=== PATIENT | male | born 2000 | race Caucasian/White ===

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

== ENCOUNTER 2024-01-25 18:34 | Observation (INO) | payer OTHER ==
[~2024-01-25] VITALS: Ht 172.7 cm; Wt 87.0 kg
[2024-01-25 19:51] LABS: BASOPHILS ABSOLUTE AUTO 0.04 K/mm3 (0.00-0.23); BASOPHILS PERCENT AUTO 1 % (0-2); EOSINOPHILS ABSOLUTE AUTO 0.05 K/mm3 (0.00-0.68); EOSINOPHILS PERCENT AUTO 1 % (0-6); Hematocrit 47.5 % (37.0-53.0); Hemoglobin 16.1 g/dL (13.5-17.5); IMMATURE GRAN ABSOLUTE AUTO 0.01 K/mm3 (0.00-0.10); IMMATURE GRAN PERCENT AUTO 0 % (0-1); LYMPHOCYTES PERCENT AUTO 19 % (21-46); MONOCYTES ABSOLUTE AUTO 0.54 K/mm3 (0.16-1.47); MONOCYTES PERCENT AUTO 7 % (4-13); Mean Corpuscular HGB Conc 33.9 g/dL (31.5-36.5); Mean Corpuscular Volume 94 fL (80-100); Mean Platelet Volume 11.4 fL (9.1-12.4); NEUTROPHILS ABSOLUTE AUTO 5.23 K/mm3 (1.96-9.15); NEUTROPHILS PERCENT AUTO 72 % (41-73); Platelet Count 199 K/mm3 (150-400); RDW Coefficient Variation 11.9 % (11.7-14.2); RDW Standard Deviation 41.4 fL (35.1-46.3); Red Blood Cell Count 5.03 M/mm3 (4.30-5.90); White Blood Cell Count 7.27 K/mm3 (4.00-11.30)
[2024-01-25 20:17] LABS: Ethanol (Alcohol), Blood, Med <3 mg/dL; Salicylate <1.7 mg/dL (2.8-20.0)
[2024-01-25 20:21] LABS: Thyroid Stimulating Hormone 0.709 uIU/mL (0.360-4.800); Thyroxine (T4) 7.9 ug/dL (4.5-12.1)
[2024-01-25 20:24] LABS: Acetaminophen, Random <2.0 ug/mL (10.0-30.0); Alanine Aminotransfer (ALT/SGP 23 U/L (12-78); Albumin/Globulin Ratio 1.2 (0.8-1.8); Alk Phos 84 U/L (50-136); Anion Gap 8 mmol/L (3-11); Aspartate Aminotrans (AST/SGOT 18 U/L (12-37); Bilirubin, Total 0.9 mg/dL (0.1-1.0); Blood Urea Nitrogen 10 mg/dL (8-24); Bun/Creatinine Ratio 12.1 (12.0-20.0); CO2, Blood 29 mmol/L (21-32); Calcium, Blood 9.2 mg/dL (8.5-10.1); Chloride, Blood 106 mmol/L (98-108); Creatinine, Blood 0.83 mg/dL (0.60-1.20); Globulin, Blood 3.3 g/dL (2.2-4.0); Glomerular Filtration Rate 127 (60-); Glucose, Blood 103 mg/dL (70-99); Potassium, Blood 3.7 mmol/L (3.5-5.5); Sodium, Blood 139 mmol/L (136-145); Total Protein, Blood 7.3 g/dL (6.4-8.2)
[2024-01-25 21:03] LABS: Source, Urine Clean Catch
[2024-01-25 21:21] LABS: Appearance, Urine Clear (Clear); Bilirubin, Urine Neg (Neg); Blood, Urine Neg (Neg); Color, Urine Yellow (P-Yellow); Glucose Qualitative, Urine Neg (Neg); Ketones, Urine Neg (Neg); Leukocyte Esterase, Urine Neg (Neg); Nitrite, Urine Neg (Neg); Protein, Urine Neg (Neg); Urobilinogen, Urine NORM (Normal)
[2024-01-25 21:36] LABS: U Amphetamine Screen Not Detected; U Barbituate Screen Not Detected; U Benzodiazapine Screen Not Detected; U Buprenorphine Screen Not Detected; U Cannabinoids Screen DETECTED; U Cocaine Screen Not Detected; U Methadone Screen Not Detected; U Methamphetamine Screen Not Detected; U Opiates Screen Not Detected; U Oxycodone Screen Not Detected; U Phencyclidine Screen Not Detected
[2024-01-25] MEDS ORDERED: Haloperidol 5 MG Tab PO PRN (22:45)
[2024-01-25] MEDS ORDERED: Haloperidol Lactate Inj. 5 MG/ML Injection IM PRN ×2 (22:45→22:50)
[2024-01-25] MEDS ORDERED: QUEtiapine Fumarate 25 MG Tab PO PRN (22:45)
[2024-01-25] MEDS ORDERED: OLANZapine ODT 10 MG Tab MM PRN ×2 (22:45)
[2024-01-25] MEDS ORDERED: OLANZapine 10 MG Vial IM PRN (22:50)
[2024-01-25] MEDS ORDERED: LORazepam 2 MG/ML 1ML Injection IM PRN ×2 (22:50)
[2024-01-25] MEDS ORDERED: DiphenhydrAMINE HCl 50 MG/ML 1ML Vial IM PRN ×3 (22:50→22:55)
[2024-01-25] MEDS ORDERED: Zolpidem Tartrate 5 MG Tab PO PRN (22:50)
[2024-01-25] MEDS ORDERED: Aluminum Hydroxide 320MG/5ML 473 ML PO PRN (22:55)
[2024-01-25] MEDS ORDERED: LORazepam 2 MG Tab PO PRN (22:55)
[2024-01-25] MEDS ORDERED: Acetaminophen 325 MG TABLET PO PRN (22:55)
[2024-01-25] MEDS ORDERED: RisperiDONE 1 MG Tab PO PRN (22:55)
[2024-01-25] MEDS ORDERED: Ibuprofen 600 MG Tab PO PRN (22:55)
[2024-01-25] MEDS ORDERED: LORazepam 1 MG Tab PO PRN ×2 (23:05→23:10)
[2024-01-26 00:15] VITALS: BP 134/87
--- NOTE | 2024-01-26 04:54 | NUR ---
Patient is an A&OX3, and cooperative with care. He admitted he was frightened about his current situation and his inability to control the "voices on the phone". Grandmother Vidya took all of his personal items home with exception of one pair underwear. He woke around 0100 anxious as he couldn't stay asleep and asked for something to help. 2mg PO Ativan given with good result. Physical assessment was benign.
== END 2024-01-25 23:25 | disposition other institution (70) ==
LOC: ER 18:34 → BHU 18:35
PROVIDERS: Emergency Medicine; ADMIT Student in an Organized Health Care Education/Training Program
DX: F31.81 Bipolar II disorder (principal); F17.210 Nicotine dependence, cigarettes, uncomplicated; F17.220 Nicotine dependence, chewing tobacco, uncomplicated; F17.290 Nicotine dependence, other tobacco product, uncomplicated; Z81.8 Family history of other mental and behavioral disorders
CPT/HCPCS: 70450; 80053; 81003; 84436; 84443; 85025; 99285-25; A9270; G0378; G0480

== ENCOUNTER 2024-01-25 23:00 | Inpatient (IN) | payer OTHER ==
[2024-01-25 23:59] VITALS: BP 107/80
[2024-01-26] MEDS ORDERED: LORazepam 2 MG/ML 1ML Injection IM PRN (10:15)
[2024-01-26] MEDS ORDERED: Acetaminophen 325 MG TABLET PO PRN (10:15)
[2024-01-26] MEDS ORDERED: Zolpidem Tartrate 5 MG Tab PO PRN (10:15)
[2024-01-26] MEDS ORDERED: DiphenhydrAMINE HCl 50 MG Cap PO PRN ×2 (10:15→10:20)
[2024-01-26] MEDS ORDERED: DiphenhydrAMINE HCl 50 MG/ML 1ML Vial IM PRN (10:15)
[2024-01-26] MEDS ORDERED: LORazepam 2 MG Tab PO PRN ×2 (10:20→10:25)
[2024-01-26] MEDS ORDERED: RisperiDONE 1 MG Tab PO PRN (10:20)
[2024-01-26] MEDS ORDERED: QUEtiapine Fumarate 25 MG Tab PO PRN (10:20)
[2024-01-26] MEDS ORDERED: Haloperidol 5 MG Tab PO PRN ×2 (10:20→10:25)
[2024-01-26] MEDS ORDERED: LORazepam 1 MG Tab PO PRN ×2 (10:20→10:25)
[2024-01-26] MEDS ORDERED: Aluminum Hydroxide 320MG/5ML 473 ML PO PRN (10:20)
[2024-01-26] MEDS ORDERED: OLANZapine ODT 10 MG Tab MM PRN (10:25)
[2024-01-26] MEDS ORDERED: Haloperidol Lactate Inj. 5 MG/ML Injection IM PRN (10:25)
[2024-01-26] MEDS ORDERED: OLANZapine 10 MG Vial IM PRN (10:25)
[2024-01-26] MEDS ORDERED: Ibuprofen 600 MG Tab PO PRN (10:25)
[2024-01-26] MEDS ORDERED: OLANZapine ODT 5 MG Tab MM PRN (10:25)
--- NOTE | 2024-01-26 11:42 | NUR ---
PT ATTENDED SECOND GROUP AND THEN REQUESTED SHOWER, PT IS IN THE SHOWER CURRENTLY, WANTED TO DO THIS BEFORE LUNCH.
--- NOTE | 2024-01-26 15:04 | NUR ---
MARTIN attempted to contact Vidya Morrison at approximately 2:30pm, however, it went to voicemail. MARTIN will attempt to reach Vidya Morrison at another time.
--- NOTE | 2024-01-26 15:12 | NUR ---
SW provided pt with tools to assist pt in developing healthy social relationships and positive self-talk due to pt expressing that he would like to learn how to understand the difference between negative and positive relationships and increase healthy self-talk.
[2024-01-26 20:18] VITALS: BP 107/80
[2024-01-26] MEDS ORDERED: QUEtiapine Fumarate 300 MG Tab PO SCH (21:00)
[2024-01-26 23:47] VITALS: BP 134/87
--- NOTE | 2024-01-27 04:28 | NUR ---
patient in room reading quietly most of evening. Appreciative of Seroquel at HS. Slept quietly through night waking only once or twice for brief periods. Sleep time likely 6-7 hours
--- NOTE | 2024-01-27 07:54 | NUR ---
AG [facility] [phone]
[2024-01-27] MEDS ORDERED: Nicotine 21 MG PATCH TOP SCH (09:00)
--- NOTE | 2024-01-27 15:10 | NUR ---
PT EXPRESSED INTEREST IN OUTPATIENT COUNSELING SERVICES AND SOME ISSUES HE HAS BEEN DEALING WITH. ENCOURAGED THIS AND WILL SPEAK TO SS ABOUT SERVICES. PT GIVEN PAPER AND SAFETY PEN HE IS WANTING TO JOURNAL IN HIS ROOM.
--- NOTE | 2024-01-27 17:42 | NUR ---
PT ASKED IF HE COULD TALK TO ME: WE TALKED, HE WAS TEARFUL: I ASKED IF HE WOULD LIKE A PEN/PAPER TO JOURNAL: RN SAID HE COULD:
[2024-01-27 21:03] VITALS: BP 137/88
--- NOTE | 2024-01-27 21:11 | NUR ---
PT C/O WARMTH, SWELLING AND SLIGHT SHARP PAIN OF 2/10 TO L LOWER EYELID. PROVIDED WARM, MOIST WASHCLOTH FOR COMPRESS. WILL CONTINUE TO MONITOR.
--- NOTE | 2024-01-28 05:21 | NUR ---
Patient continues to sleep well. No noted issues or behaviors.
--- NOTE | 2024-01-28 08:20 | NUR ---
PT SLEPT "WELL," STATES HE IS "OK," HE'S AGAIN TALKING ABOUT CONCERNS ABOUT SOME PORNOGRAPHIC MATERIAL HE VIEWED BEFORE ADMISSION, REASSURED PT, PT IS STILL OPEN TO RECEIVING OUTPATIENT THERAPY, BUT ALSO WOULD LIKE TO SPEAK TO THE PROVIDER. PT HAS SOME SWELLING OF LEFT LOWER EYELID THIS MORNING, PT WAS TEARFUL AND RUBBING EYES YESTERDAY, HE IS GIVEN WARM COMPRESS AND TEA BAG. PT ATE FULL BREAKFAST. PT WITH BLUNTED AFFECT THIS MORNING AND AVOIDING EYE CONTACT.
[2024-01-28 08:27] VITALS: BP 137/85
--- NOTE | 2024-01-28 10:26 | NUR ---
PROVIDER TO BEDSIDE FOR EVALUATION AT THIS TIME.
[2024-01-28] MEDS ORDERED: LamoTRIgine 25 MG Tab PO SCH (12:00)
--- NOTE | 2024-01-28 13:54 | NUR ---
PROVIDER DC'D SEROQUEL AND WILL BE STARTNG LAMICTAL, NOT AVAILABLE IN THE [facility] AT THIS TIME, PHARMACY CONTACTED AND NOTIFIED, THEY WILL LOAD BY 1500 PER PC. PT LAID DOWN AND APPEARS TO BE SLEEPING AT THIS TIME, RESPIRATIONS EVEN AND UNLABORED.
--- NOTE | 2024-01-28 15:48 | NUR ---
MEDICATIONS ARRIVED FROM PHARMACY, PT WOKEN UP, DISCUSSED NEW MEDICATIONS AND POSSIBLE SIDE EFFECTS, PT STATES HE WILL LET STAFF KNOW OF ANY RASHES IMMEDIATELY, WELL ANY OTHER SIDE EFFECTS. DISCUSSED IMPORTANCE OF NOT ABRUPTLY STOPPING MEDICATION ONCE STARTED, PT VERBALLY REPORTS UNDERSTANDING. PT NOW IN MEDIA ROOM WATCHING THE HISTORY CHANNEL WITH STAFF AND ANOTHER PATIENT.
--- NOTE | 2024-01-28 21:02 | NUR ---
Patient refuse HS quetiapine. Bank Courier explained the importance of med compliance, as the the charger tester, however pt continued to refuse med. Pt also removed his nicotine patch at about 2100.
[2024-01-28 21:38] VITALS: BP 148/98
--- NOTE | 2024-01-28 21:40 | NUR ---
At about 0, [facility] reported to this teletypewriter installer that patient was "spiraling." Sales Property Manager went to patient's room and talked about his racing thoughts and explained that the med he refused earlier (quetiapine) would help with the racing thoughts. Patient continues to refuse quetiapine and said that he knew what he needed to do. Sales Property Manager explained that if patient changes his mind about the quetiapine that we would administer it late if desired. Will continue to monitor.
--- NOTE | 2024-01-29 01:13 | NUR ---
Patient was up to the nurse station at about 0100 requesting to take the quetiapine that he initially refused. RN pulled the med and administered it. Patient also mentioned that he has not had a BM in about 2 days. RN told the patient that he would document the statement and that the patient should discuss this issue with the provider.
[2024-01-29 09:52] VITALS: BP 111/72
[2024-01-29 19:40] VITALS: BP 120/90
--- NOTE | 2024-01-30 03:01 | NUR ---
Pt calm, cooperative, actively learning taking notes on medications, journaling. Pt has sty on left eye applying warm compresses. Pt medication compliant, medications administered as ordered, medications well tolerated. Pt engaged in treatment and recovery plan of care.
[2024-01-30 08:29] VITALS: BP 126/77
--- NOTE | 2024-01-30 08:35 | NUR ---
MORNING ASSESSMENT: PT DENIED SI, HI, AVH AND PAIN. HE REPORTED MILD ANXIETY OF 3/10w. PHYSICAL ASSESSMENT WAS WNL. PT REPORTED "i FEEL GOOD...I'M READY TO DO THIS." HE WAS ENCOURAGED TO ATTEND GROUPS TODAY AND APPEARED RECEPTIVE. HE IS PRESENTLY IN THE SHOWER.
[2024-01-30] MEDS ORDERED: Polyethylene Glycol 3350 17 gm PO PRN (15:15)
--- NOTE | 2024-01-30 15:24 | NUR ---
At 1457pm MARTIN contacted grandmother (i.e. Vidya) of pt by number [phone] in order to advise of discharge time and date (i.e. 01/31/2024 1515pm). Vidya advised she will be able to tile picker pt on time discussed.
--- NOTE | 2024-01-30 15:27 | NUR ---
Approximately 1450pm SW met with pt to review helpful resources to use after discharge (i.e. individual therapy, anger management and psychiatric services). Pt advised that he would like to utilize the services provided. Pt stated that [employer] provided him with resources for employment. Pt expressed to SW that he does not have any current concerns and plans to utilize the resources provided by team. 01/27/2024 MARTIN and [facility] worked together to ensure that pt had therapuetic resources within network of his insurance.
--- NOTE | 2024-01-30 17:48 | NUR ---
Came into work this morning at 0645, PT told me he pooped yesterday/ last night, and felt very bloated in AM. I asked PT how he was feeling and if he had pooped yet today around 1430 and he said no. He said he drank some apple juice, water, and would like a stool softner. I told him I would let the RN know.
--- NOTE | 2024-01-30 19:02 | NUR ---
PT REPORTED SMALL AMOUNT OF BM SINCE DRINKING THE MIRALAX.
[2024-01-30 20:22] VITALS: BP 140/80
--- NOTE | 2024-01-31 05:10 | NUR ---
Henri had a good night last night. spent most of the evening reading and journaling. He is alert and oriented X3, and states he is having no further auditory hallucinations, feels well rested and is looking forward to likely discharge in the AM.
[2024-01-31 10:09] VITALS: BP 129/80
[2024-01-31] MEDS ORDERED: LAMO25 PO (11:09)
[2024-01-31] MEDS ORDERED: NICO21TP TOP (11:11)
[2024-01-31] MEDS ORDERED: QUET300 PO (11:11)
== END 2024-01-31 12:30 | disposition home or self-care (01) | DRG 885 ==
LOC: BHU 23:00
PROVIDERS: ADMIT Student in an Organized Health Care Education/Training Program
DX: F31.81 Bipolar II disorder (principal); R45.851 Suicidal ideations; F17.210 Nicotine dependence, cigarettes, uncomplicated; F29 Unspecified psychosis not due to a substance or known physiological condition; F12.10 Cannabis abuse, uncomplicated; Z91.018 Allergy to other foods
CPT/HCPCS: A9270

== ENCOUNTER → 2024-02-13 | Outpatient (CLI) | payer OTHER ==
[~2024-02-13] MED LIST changes: +LAMO25 PO; +NICO21TP TOP; +QUET300 PO
== END | disposition home or self-care (01) ==
LOC: LAB 08:15 → LAB SHORT 08:15
DX: R19.8 Other specified symptoms and signs involving the digestive system and abdomen (principal)
CPT/HCPCS: 87070; 87205

== ENCOUNTER → 2024-07-04 | Outpatient (CLI) | payer OTHER ==
[2024-07-04 23:27] LABS: Adenovirus F 40/41 Not Detected (NOT DETECT); Campylobacter Sp Not Detected (NOT DETECT); Cryptosporidium Not Detected (NOT DETECT); Cyclospora Cayetanensis Not Detected (NOT DETECT); E. Coli O157 Not Detected (NOT DETECT); Entamoeba Histolytica Not Detected (NOT DETECT); Enteroaggregative E. coli-EAEC Not Detected (NOT DETECT); Enteropathogenic E. coli-EPEC Not Detected (NOT DETECT); Enterotoxigenic E. coli-ETEC Not Detected (NOT DETECT); Giardia Lamblia Not Detected (NOT DETECT); Plesiomonas Shigelloides Not Detected (NOT DETECT); Salmonella Sp Not Detected (NOT DETECT); Shiga Toxin-prod E. coli-STEC Not Detected (NOT DETECT); Shigella/Enteroin E. coli-EIEC Not Detected (NOT DETECT); Vibrio Cholerae Not Detected (NOT DETECT); Vibrio Sp Not Detected (NOT DETECT); Yersinia Enterocolitica Not Detected (NOT DETECT)
[2024-07-04 23:28] LABS: Astrovirus Not Detected (NOT DETECT); Norovirus GI/GII Not Detected (NOT DETECT); Rotavirus A Not Detected (NOT DETECT); Sapovirus Not Detected (NOT DETECT)
== END ==
LOC: LAB 13:30 → LAB SHORT 13:30
PROVIDERS: Nurse Practitioner Family
DX: R19.7 Diarrhea, unspecified (principal)
CPT/HCPCS: 87507

== ENCOUNTER 2025-07-10 14:57 | Observation (INO) | payer OTHER ==
[~2025-07-10] VITALS: Ht 172.7 cm; Wt 81.7 kg
[2025-07-10 17:27] LABS: BASOPHILS ABSOLUTE AUTO 0.02 K/mm3 (0.00-0.23); BASOPHILS PERCENT AUTO 0 % (0-2); EOSINOPHILS ABSOLUTE AUTO 0.05 K/mm3 (0.00-0.68); EOSINOPHILS PERCENT AUTO 1 % (0-6); Hematocrit 48.2 % (37.0-53.0); Hemoglobin 16.2 g/dL (13.5-17.5); IMMATURE GRAN ABSOLUTE AUTO 0.02 K/mm3 (0.00-0.10); IMMATURE GRAN PERCENT AUTO 0 % (0-1); LYMPHOCYTES ABSOLUTE AUTO 1.96 K/mm3 (0.84-5.20); LYMPHOCYTES PERCENT AUTO 21 % (21-46); MONOCYTES ABSOLUTE AUTO 0.72 K/mm3 (0.16-1.47); MONOCYTES PERCENT AUTO 8 % (4-13); Mean Corpuscular HGB Conc 33.6 g/dL (31.5-36.5); Mean Corpuscular Volume 94 fL (80-100); NEUTROPHILS ABSOLUTE AUTO 6.47 K/mm3 (1.96-9.15); NEUTROPHILS PERCENT AUTO 70 % (41-73); NRBC ABSOLUTE 0.00 K/mm3 (0.00-0.02); NRBC Auto 0.0 /100 WBC (0.0-0.2); Platelet Count 160 K/mm3 (150-400); RDW Coefficient Variation 12.0 % (11.7-14.2); RDW Standard Deviation 41.8 fL (35.1-46.3)
[2025-07-10 18:31] LABS: Ethanol (Alcohol), Blood, Med <3 mg/dL; Salicylate 2.9 mg/dL (2.8-20.0)
[2025-07-10 18:34] LABS: Source, Urine Clean Catch
[2025-07-10 18:37] LABS: Bilirubin, Urine Neg (Neg); Color, Urine Yellow (P-Yellow); Glucose Qualitative, Urine Neg (Neg); Ketones, Urine 1+ (Neg); Leukocyte Esterase, Urine Neg (Neg); Protein, Urine Neg (Neg); Specific Gravity, Urine 1.020 (1.003-1.022); Urobilinogen, Urine 1+ (Normal)
[2025-07-10 18:43] LABS: Alanine Aminotransfer (ALT/SGP 20 U/L (12-78); Albumin, Blood 4.1 g/dL (3.4-5.0); Albumin/Globulin Ratio 1.4 (0.8-1.8); Anion Gap 7 mmol/L (3-11); Aspartate Aminotrans (AST/SGOT 15 U/L (12-37); Bilirubin, Total 0.5 mg/dL (0.1-1.0); Blood Urea Nitrogen 7 mg/dL (8-24); CO2, Blood 27 mmol/L (21-32); Calcium, Blood 9.0 mg/dL (8.5-10.1); Chloride, Blood 109 mmol/L (98-108); Creatinine, Blood 0.70 mg/dL (0.60-1.20); Globulin, Blood 3.0 g/dL (2.2-4.0); Glucose, Blood 94 mg/dL (70-99); Potassium, Blood 3.5 mmol/L (3.5-5.5); Sodium, Blood 139 mmol/L (136-145); Total Protein, Blood 7.1 g/dL (6.4-8.2)
[2025-07-10 18:44] LABS: Acetaminophen, Random <2.0 ug/mL (10.0-30.0)
[2025-07-10 18:49] LABS: U Amphetamine Screen Not Detected; U Barbiturate Screen Not Detected; U Benzodiazapine Screen Not Detected; U Buprenorphine Screen Not Detected; U Cannabinoids Screen DETECTED; U Cocaine Screen Not Detected; U Methadone Screen Not Detected; U Methamphetamine Screen Not Detected; U Opiates Screen Not Detected; U Oxycodone Screen Not Detected; U Phencyclidine Screen Not Detected
[2025-07-10 19:19] VITALS: BP 133/78
== END 2025-07-11 11:45 | disposition home or self-care (01) ==
LOC: ER 14:57 → EOR 14:58
PROVIDERS: Student in an Organized Health Care Education/Training Program; ADMIT Emergency Medicine
DX: F43.25 Adjustment disorder with mixed disturbance of emotions and conduct (principal); R45.851 Suicidal ideations; F31.81 Bipolar II disorder; F17.220 Nicotine dependence, chewing tobacco, uncomplicated; F17.210 Nicotine dependence, cigarettes, uncomplicated; F17.290 Nicotine dependence, other tobacco product, uncomplicated; Z79.899 Other long term (current) drug therapy
CPT/HCPCS: 36415; 80053; 80320; 81003; 85025; 99285; G0378; G0480